=== PATIENT | female | born 1985 | race Caucasian/White ===

== ENCOUNTER 2017-03-11 08:27 | Day surgery (SDC) | payer OTHER ==
--- NOTE | 2017-03-10 17:52 | HP ---
Preoperative History and Physical She will be coming into [facility] at about 09:00 a.m. on 03/11/2017. She will be having surgery at 10 o'clock in the Outpatient Surgical Unit here in [facility]. HISTORY OF PRESENT ILLNESS: This patient is a 31-year-old 2, para 1, AB1 patient, who does have a long history of persistent cervical dysplasia. She has had PATRICIA I for approximately three years. 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 She is followed by Dr. Kelle Barbosa, and Dr. Kelle Barbosa refers the patient to us. She also has had repeated ASCUS, abnormal Pap smears. Because of the persistence of this lesion and because she has never had cryotherapy or LEEP, it has been recommended that she proceed with LEEP procedure at this time. The patient did discuss with me and with Dr. Barbosa previously. Her concern for not wanting to have the procedure done in the clinic as she might feel some pain and discomfort and because of her degree of anxiety, all of us agree that this patient would be most appropriately handled under a brief general anesthesia in the operating room. She also will need a repeat colposcopy just prior to the LEEP procedure tomorrow. The patient is not real sure whether not she wants to have another child or not. We therefore will be very appropriate and judicious when we removed the cervical tissue at LEEP procedure. PAST MEDICAL HISTORY: She denies any knowledge of heart, lung, liver, or kidney disease. Apparently, she did take a short course of albuterol when she did have a URI in October of 2016. She denies any asthma history as such. She did have some mild GERD about one year ago and did take an antacid that she is not able to recall the name of. She is no longer on any antacids. ALLERGIES: None known. MEDICATIONS: At present, she does take multivitamins, Farnham-3 fish oils, and calcium supplementation. Previous surgery she has only had colonoscopy done before. FAMILY HISTORY: Noncontributory. SOCIAL HISTORY: She does smoke 1/2 pack of cigarettes daily. She admits to the social usage of alcohol. She does work at the local [employer] facility, and her significant other's name is Hector, she is from [facility] initially. PHYSICAL EXAMINATION: Vital Signs: Within normal limits. Please see the EHR. HEENT: Sclerae are nonicteric. Lungs: Clear to A. Heart: Regular rhythm without murmur. Abdomen: Soft, and nontender without any palpable masses. There is negative CVA tenderness. Pelvic: Recent pelvic exam revealed the vulvar and vaginal exam to be within normal limits. The cervix have no gross lesions on her average sized cervix. Cervix was nontender to motion. Uterus was in the mid position, normal-sized and nontender. There were no adnexal masses or tenderness. Extremities: Negative. Neurologic: Grossly intact. 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 Because of the persistent nature of her abnormal lesion, we have recommended repeat colposcopy with LEEP procedure. We will be very careful and judicious with the amount of cervical tissue that we remove since she may possibly want to conceive again. We did review with her the goals of the LEEP procedure and the possible slight risk for future complications such as cervical stenosis and resulting infertility, and also incompetent cervix and labor as a slight possibility with future pregnancies. Also, we discussed the slight possibility of bleeding or hemorrhage and infection etc. The patient will be examined again and informed consent to be done again with signing of the permit on Thursday morning at 03/11/2017. The patient does consent and agree to the above mentioned procedures. [facility] /[id number]
[2017-03-11] MEDS ORDERED: Ferric Subsulfate Topical Soln 8 GM (8 ML) Bottle ONE (09:06)
[2017-03-11] MEDS ORDERED: Lidocaine 1% with EPINEPHrine 1:100,000 20 ML MDV ONE (09:07)
[2017-03-11] MEDS ORDERED: Silver Nitrate Applicator Each ONE (09:07)
[2017-03-11] MEDS ORDERED: Lactated Ringers 1,000 ML IV SCH (09:15)
[2017-03-11] MEDS ORDERED: Ondansetron 4 MG/2 ML SDV ONE (09:38)
[2017-03-11] MEDS ORDERED: Midazolam 1 MG/ML 2 ML SDV ONE (09:38)
[2017-03-11] MEDS ORDERED: Ketorolac 30 MG/ML SDV ONE (09:38)
[2017-03-11] MEDS ORDERED: fentaNYL 100 MCG/2 ML SDV ONE (09:38)
[2017-03-11] MEDS ORDERED: Glycopyrrolate 0.2 MG/ML 2 ML SDV ONE (09:39)
[2017-03-11] MEDS ORDERED: Succinylcholine 200 MG/10 ML MDV ONE (09:39)
[2017-03-11] MEDS ORDERED: Propofol 200 MG/20 ML SDV ONE (09:39)
[2017-03-11] MEDS ORDERED: Lidocaine 2% 20 ML MDV ONE (09:39)
[2017-03-11] MEDS ORDERED: Ferric Subsulfate Topical Soln 8 GM (8 ML) Bottle TOP ONE (10:41)
[2017-03-11 12:37] VITALS: BP 114/68
[2017-03-11] MEDS ORDERED: Midazolam 1 MG/ML 2 ML SDV IV ONE (15:31)
[2017-03-11] MEDS ORDERED: Propofol 200 MG/20 ML SDV IV ONE (15:31)
[2017-03-11] MEDS ORDERED: Ketorolac 30 MG/ML SDV IVPUSH ONE (15:31)
[2017-03-11] MEDS ORDERED: Ondansetron 4 MG/2 ML SDV IV ONE (15:31)
[2017-03-11] MEDS ORDERED: Lidocaine 2% 20 ML MDV INJECT ONE (15:31)
[2017-03-11] MEDS ORDERED: Lidocaine 1% with EPINEPHrine 1:100,000 20 ML MDV INJECT ONE (15:33)
[2017-03-11] MEDS ORDERED: Iodine/Potassium Iodide 5% Solution 14 ML Bottle TOP ONE (15:33)
--- NOTE | 2017-03-11 21:29 | OR ---
DATE: OPERATION PERFORMED: Colposcopy followed by LEEP procedure. PREOPERATIVE DIAGNOSIS: Persistent PATRICIA I with high risk HPV-DNA serotypes. POSTOPERATIVE DIAGNOSIS: Persistent PATRICIA I with high risk HPV-DNA serotypes. ANESTHESIA: General. COMPLICATIONS: None. ESTIMATED BLOOD LOSS: 5 mL. DESCRIPTION OF PROCEDURE: After general anesthesia was achieved, the patient was carefully prepared and placed in the dorsal lithotomy position in the operating room. A colposcopy was now done at this time. Dilute vinegar was applied to the cervix in the usual fashion. At colposcopy, a small island of white epithelium was noted at 10 o'clock on the cervix. As mentioned above, all of her transformation zone was visualized. Now, we proceeded on with LEEP procedure. The Lugol's iodine was applied to the cervix with the carbonized or blue speculum placed and using an anterior lip of the cervix being grasped by the single-tooth tenaculum and stabilizing the tissues. An 8 mm x 20 mm loop electrode was selected, now with the cutting and coagulation of the CFX BATTERY, electrosurgical unit placed on 50 and 50 with a blended current. The LEEP procedure was begun. The anterior lip of the cervix came off separately and this was submitted initially, then proceeding on with the posterior lip of the cervix, we were able to remove an appropriately sized specimen. Great caution was taken to make sure that just enough, but not excessive tissue was removed. I did see another fragment that was loosely hanging from the posterior lip of the cervix and this was carefully excised with Metzenbaum scissors, so at this time, three separate small segments of cervical tissue were submitted in the same container to the pathologist. Monsel's solution was applied to the cervical bed just before or should I say just after the ball electrode was used to electrocoagulate the couple of small bleeders. Now, Monsel's solution was applied to the cervix. All of the instruments were removed. Sponge count was reported as correct. Estimated blood loss was approximately 5 mL. The patient tolerated the procedure well and went to the recovery room in good condition. Followup instructions have been given to her to avoid intercourse for 3 to 4 weeks and also to come to the office for a followup postoperative visit in approximately 4 weeks. We will be repeating a repeat Pap smear in approximately 3 to 4 months from now. She was also instructed to contact us if any excessive bleeding, any unusual pain, or fever etc. The patient understood and assured me that she would comply with all of these instructions. [facility] /[id number]
== END 2017-03-11 12:45 | disposition home or self-care (01) ==
LOC: DL.SDS 08:27
PROVIDERS: ATTEND Obstetrics & Gynecology
DX: N87.0 Mild cervical dysplasia (principal); R87.810 Cervical high risk human papillomavirus (HPV) DNA test positive; K21.9 Gastro-esophageal reflux disease without esophagitis; F41.9 Anxiety disorder, unspecified; Z79.899 Other long term (current) drug therapy; Z98.890 Other specified postprocedural states; F17.210 Nicotine dependence, cigarettes, uncomplicated
CPT/HCPCS: 36415; 57460; 81025; 84443; A9270; J1885; J2250; J2405; J2704; J7120

== ENCOUNTER 2020-09-25 01:53 | Inpatient (IN) | payer BC ==
[2020-09-25] MEDS ORDERED: Carboprost Tromethamine 250 MCG/1 ML Amp IM PRN (02:50)
[2020-09-25] MEDS ORDERED: Lactated Ringers 1,000 ML IV ONE (02:50)
[2020-09-25] MEDS ORDERED: Sodium Chloride 0.9% 10 ML Syringe FLUSH PRN (02:50)
[2020-09-25] MEDS ORDERED: Lidocaine 1% 30 ML SDV INJECT PRN (02:50)
[2020-09-25] MEDS ORDERED: Methylergonovine 0.2 MG/1 ML Amp IM PRN (02:50)
[2020-09-25] MEDS ORDERED: Misoprostol 400 MCG (4 X 100 MCG TAB) RECTAL PRN (02:50)
[2020-09-25] MEDS ORDERED: Tranexamic Acid 1,000 MG in Sodium Chloride 0.9% 100 ML IV PRN (02:50)
[2020-09-25] MEDS ORDERED: Ondansetron 4 MG/2 ML SDV IVPUSH PRN (02:50)
[2020-09-25] MEDS ORDERED: Oxytocin/Normal Saline 30 UNIT/500 ML BAG IV SCH (03:00)
[2020-09-25] MEDS ORDERED: Lactated Ringers 1,000 ML IV SCH (03:00)
[2020-09-25] MEDS ORDERED: fentaNYL 100 MCG/2 ML SDV ONE (03:05)
[2020-09-25] MEDS ORDERED: Sodium Bicarbonate 4.2% 2.5 MEQ/5 ML SDV ONE (03:06)
--- NOTE | 2020-09-25 03:29 | PCM.SN.2 ---
- Free Text/Narrative Note: Intrathecal. Sitting position, sterile prep and drape. 1% lidocaine w bicarb for skinwheal to L2 L3 interspace. Introducer, 24 ga pencan x 1. Pos CSF, neg heme, neg parasthesia. 20 mcg pf Sufenta, 30 mcg pf Fentanyl, 0.4 ml pf NS and 6 mg of 0.75% pf Marcaine injected after CSF aspiration. Pt to L lateral position. P rocedure time 0305 to 0335
[2020-09-25] MEDS ORDERED: Famotidine 20 MG/2 ML SDV IVPUSH STA (04:27)
--- NOTE | 2020-09-25 04:41 | HP ---
CHIEF COMPLAINT: Increased force and frequency of contractions. HISTORY OF PRESENT ILLNESS: A 35-year-old, 4, para 1-0-2-1, currently at 39-5/7 weeks based on last menstrual period, presents to Labor and Delivery reporting off and on contractions all day usually ranging between 4 and 5 minutes, but then would peter out, then come back again, and around 10 o'clock tonight, contractions became much more regular and much stronger, so she came into the hospital for evaluation of labor. She denies any leakage of fluid or vaginal bleeding. movement has been good. No symptoms of preeclampsia. No chest pain or shortness of breath. No fever or chills. No diarrhea or constipation. No other acute concerns at this time. OBSTETRICAL HISTORY: 1. 04/13/2007, 10 weeks gestation, spontaneous . 2. 10/31/2009, 41 weeks 2 days gestation, spontaneous vaginal delivery, baby 3515 g, 7 pounds 12 ounces, female, delivered by . The patient had an intrathecal and reported having some flushing from that intrathecal, and she was a midnight induction with 7 a.m. rupture and 9 a.m. delivery, with less than half hour pushing. Baby's scores were 7 and 9. 3. 10/15/2017, 11 week 5 days spontaneous . 4. Current . LABORATORY: She is blood type O negative. Rubella immune. Syphilis negative. Hepatitis B negative. HIV negative. Gonorrhea and chlamydia negative. TSH normal at 2.55. Group B strep negative. Glucose tolerance test normal at 103. PAST MEDICAL HISTORY: Abnormal Pap smears with LSIL and PATRICIA 1. C difficile diarrhea, chlamydia, dysmenorrhea, gastroesophageal reflux, nicotine addiction, and sigmoid polyp. SURGERIES: Colonoscopy 01/14/2016 and sigmoid polyp removed. Cervical LEEP, 03/11/2017. FAMILY HISTORY: Mother with high cholesterol. Father is unknown medical history. Three sisters, 1 with abnormal Pap smears, otherwise negative. Maternal grandmother has some sort of heart problems possibly, but it is unclear. Maternal grandfather with cancer. Paternal grandmother with metastatic cancer diagnosis. Paternal grandfather with thyroid disease and colon cancer. Cousin with thyroid disease and a paternal great grandmother. SOCIAL HISTORY: The patient lives with her boyfriend, whom she has been together with since 2004. They have 1 daughter together. 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 He has Dennys thyroiditis, and his parents are alive and well. They have 1 dog and 3 cats. Smoker, about 1/2 pack per day. No alcohol use this . No drugs. REVIEW OF SYSTEMS: As noted above. No other pertinent changes on 12-system review. PHYSICAL EXAMINATION: General: Pleasant, well-appearing, 35-year-old female, appears her stated age. Vitals: Temp 97.9, Pulse 80, BP 118/67. Reap 18. Head, Eyes, Ears, Nose, Throat: All within normal limits to gross inspection. Neck: Supple without adenopathy. Heart: Regular without murmur. Lungs: Clear to auscultation bilaterally. Abdomen: Soft, nontender, gravid. Positive bowel sounds. heart tones 145 beats per minute at baseline with [id number] variability, accelerations noted. [place] shows contractions about every 3 minutes. Pelvis: Cervix 8 cm dilated with bag of water intact per nurse's exam. Extremities: No edema, erythema, or tenderness noted. LABORATORY DATA: CBC: Hemoglobin 12.0, platelets 194. ASSESSMENT: 1. Term . 2. Active labor. 3. Smoker. 4. 4, para 1-0-2-1 at 39-5/7 weeks. 5. Blood type O negative, rubella immune, and group B strep negative. 6. History of loop electrosurgical excision procedure. 7. History of spontaneous x2. PLAN: The patient admitted to Labor and Delivery. Artificial rupture of membranes was performed with return of thick meconium-stained fluid and an actual meconium plug present. Bedside ultrasound performed to verify position as vertex. [facility] /[id number] LIA
[2020-09-25] MEDS ORDERED: Benzocaine/Menthol 20%-0.5% Spray 56 GM Canister TOP PRN (07:31)
[2020-09-25] MEDS ORDERED: Oxytocin 10 Units/1 ML SDV IM PRN (07:31)
[2020-09-25] MEDS ORDERED: Simethicone 80 MG Tab.Chew PO PRN (07:31)
[2020-09-25] MEDS: Ibuprofen 800 MG Tab PO PRN ×2 (08:56→19:20)
[2020-09-25] MEDS: Docusate Sodium 100 MG Cap PO PRN ×2 (08:56→19:20)
[2020-09-25] MEDS: Prenatal Multivitamin with Calcium/Folic Acid/Iron Tab PO SCH (08:56)
[2020-09-25] MEDS: Acetaminophen 325 MG Tab PO PRN (19:20)
--- NOTE | 2020-09-26 03:42 | DEL ---
DATE: 09/25/2020 PREPROCEDURE DIAGNOSES: 1. A 39-5/7 weeks intrauterine by last menstrual period. 2. 4, para 1-0-2-1. 3. Blood type O negative, rubella immune, group B strep negative. 4. Smoker. 5. History of loop electrosurgical excision procedure. 6. History of spontaneous x2. POSTPROCEDURE DIAGNOSES: 1. A 39-5/7 weeks intrauterine by last menstrual period. 2. 4, now para 2-0-2-2. 3. Blood type O negative, rubella immune, group B strep negative. 4. Smoker. 5. History of loop electrosurgical excision procedure. 6. History of spontaneous x2. 7. Status post spontaneous vaginal delivery with second-degree laceration repair. BRIEF HISTORY: A 35-year-old female presented to the hospital earlier in the day with latent stage labor and was discharged home. She returned with onset of contractions approximately 8-1/2 hours prior to reaching complete cervical dilatation. When she did come back to the hospital, she was 8 cm dilated, allowed to labor a little bit on her own and requesting intrathecal, so she did receive that for pain management, and artificial rupture of membranes was performed with return of thick dark green meconium-stained fluid as well as a meconium plug. Bedside ultrasound was performed to verify that the baby had remained vertex from when she had been seen earlier in the morning prior to allowing her labor to continue. After that, she labored until she was complete and then had an anterior lip and continued to labor down thereafter. Once she started to feel some pelvic pressure, she pushed for about 18 minutes, and the stage 2 only lasted about 12 minutes. It was noted that the amniotic fluid gradually cleared as she was pushing the baby down, consistent with the meconium fluid only being between the baby's head and the cervix and not around the rest of the . DETAILS: With the patient in dorsal lithotomy position, she delivered a viable male in the ELIDIA position over intact perineum. Baby had a strong vigorous cry, so he was dried and stimulated. Nurse then elected to suction the mouth and nose, and the baby was brought up to the mother's abdomen. After delay, a 3-vessel umbilical cord was doubly clamped and then cut, and cord blood sample obtained. Placenta then delivered by gentle cord traction and concomitant uterine massage, inspected, and intact. Labia and vagina were inspected, and she had a second-degree laceration that was repaired with 3-0 Vicryl in the usual fashion and appropriate cosmetic result and hemostasis. Procedure was performed under 1% lidocaine local anesthetic. The patient tolerated well. ESTIMATED BLOOD LOSS: 300 mL. COMPLICATIONS: None. FINDINGS: Baby's score of 8 and 9. weight 8 pounds 4 ounces, 3745 g. Length 20-3/4 inches, head 13-1/2 inches, chest 14-1/4 inches. Baby's blood type is B positive, and mother will receive her RhoGAM injection. DISPOSITION: Mother and baby to stay in the room at this time. [facility] /[id number]
[2020-09-26] MEDS: Ibuprofen 800 MG Tab PO PRN (03:43)
[2020-09-26] MEDS: Acetaminophen 325 MG Tab PO PRN (03:44)
[2020-09-26] MEDS: Docusate Sodium 100 MG Cap PO PRN (07:57)
[2020-09-26] MEDS: Prenatal Multivitamin with Calcium/Folic Acid/Iron Tab PO SCH (07:57)
[2020-09-26 08:50] VITALS: BP 112/71; PULSE 57
[2020-09-26] MEDS ORDERED: Sodium Bicarbonate 4.2% 2.5 MEQ/5 ML SDV ONE (10:14)
[2020-09-26] MEDS ORDERED: fentaNYL 100 MCG/2 ML SDV ITHECAL ONE (10:14)
[2020-09-26] MEDS ORDERED: Sodium Chloride 0.9% 20 ML SDV ONE (10:14)
== END 2020-09-26 10:15 | disposition home or self-care (01) | DRG 560 ==
LOC: DL.OBCHECK 01:53 → DL.OB 02:37 → OBSVTOIN 06:40 → DL.OB 06:40
PROVIDERS: ADMIT Family Medicine; ATTEND Family Medicine
PROC: 10E0XZZ Delivery of Products of Conception, External Approach (ICD-10-PCS; principal; 2020-09-25)
PROC: 10907ZC Drainage of Amniotic Fluid, Therapeutic from Products of Conception, Via Natural or Artificial Opening (ICD-10-PCS; 2020-09-25)
PROC: 3E0R3BZ Introduction of Anesthetic Agent into Spinal Canal, Percutaneous Approach (ICD-10-PCS; 2020-09-25)
PROC: 00HU33Z Insertion of Infusion Device into Spinal Canal, Percutaneous Approach (ICD-10-PCS; 2020-09-25)
DX: O99.334 Smoking (tobacco) complicating childbirth (principal); O77.0 Labor and delivery complicated by meconium in amniotic fluid; Z37.0 Single live birth; O99.62 Diseases of the digestive system complicating childbirth; K21.9 Gastro-esophageal reflux disease without esophagitis; F17.210 Nicotine dependence, cigarettes, uncomplicated; O70.1 Second degree perineal laceration during delivery; Z20.822 Contact with and (suspected) exposure to COVID-19; Z3A.39 39 weeks gestation of pregnancy; Z28.82 Immunization not carried out because of caregiver refusal
CPT/HCPCS: 01967; 36415; 36430; 59409; 85027; 85461; 86850; 86870; 86900; 86901; A9270-GY; J2001; J2405; J2590; J2790; J3010; J3490; J7120; U0002

== ENCOUNTER 2023-06-02 11:51 | Emergency (ER) | payer BC, OTHER ==
[2023-06-02] MEDS ORDERED: Bacitracin Oint 1 GM U/D Packet TOP ONE (12:04)
[2023-06-02] MEDS ORDERED: Lidocaine 1% 30 ML SDV INFILT ONE (12:05)
[2023-06-02 12:25] VITALS: BP 114/64; PULSE 88
== END 2023-06-02 13:20 | disposition home or self-care (01) ==
LOC: DL.ED 11:51
DX: S61.211A Laceration without foreign body of left index finger without damage to nail, initial encounter (principal); W26.9XXA Contact with unspecified sharp object(s), initial encounter; Y99.0 Civilian activity done for income or pay
CPT/HCPCS: 12001; 99282; 99283; A9270-GY; J3490